=== PATIENT | female | born 1990 | race Caucasian/White ===

== ENCOUNTER 2020-06-25 21:21 | Emergency (ER) | payer OTHER ==
--- NOTE | 2020-06-25 21:35 | ER Document Report ---
ED Medical Screen (RME) - General Chief Complaint: Groin Pain Stated Complaint: POSSIBLE INFECTION GROIN AREA Time Seen by Provider: 06/25/20 21:29 Mode of Arrival: Ambulatory Information source: Patient Notes: Patient presents complaining of infection to the left groin area. Patient states that she has a large area of redness and tenderness. Patient states that it did start to spontaneously drain today. Patient denies any fever. Patient denies any chronic underlying medical problems. I have greeted and performed a rapid initial assessment of this patient. A comprehensive ED assessment and evaluation of the patient, analysis of test results and completion of the medical decision making process will be conducted by additional ED providers. Physical Exam - General General appearance: Appears well, Alert Notes: Left inguinal tenderness, exam limited as patient is in triage
[2020-06-26] MEDS ORDERED: SULFAMETHOXAZOLE/TRIMETHOPRIM 800-160 MG TABLET PO ONE (00:20)
[2020-06-26] MEDS ORDERED: CEPHALEXIN 500 MG CAPSULE PO ONE (00:20)
--- NOTE | 2020-06-26 00:29 | ER Document Report ---
ED General - General Chief Complaint: Abscess Stated Complaint: POSSIBLE INFECTION GROIN AREA Time Seen by Provider: 06/25/20 21:29 Mode of Arrival: Ambulatory Notes: 29-year-old female no significant past medical history presents with pain and swelling in left groin area over the last 3 days. Patient thinks symptoms were preceded by an ingrown hair. Had small lump but then dispersed just prior to arrival and some green fluid came out. Patient otherwise feels well. Patient denies any vaginal symptoms, diabetes, HIV, immunocompromise history, prior evaluation/recent antibiotics, fever, vomiting, symptoms elsewhere - Related Data Allergies/Adverse Reactions: No Known Allergies Allergy (Unverified 06/25/20 21:36) Past Medical History - General Information source: Patient - Social History Smoking Status: Former Smoker Frequency of alcohol use: None Drug Abuse: None Family History: Reviewed & Not Pertinent Review of Systems - Review of Systems Notes: REVIEW OF SYSTEMS: CONSTITUTIONAL : Denies fever, chills, or sweats. EENT: Denies recent cold/sinus symptoms, denies throat pain CARDIOVASCULAR: Denies chest pain, MEG RESPIRATORY: Denies cough, denies shortness of breath. GASTROINTESTINAL: Denies abdominal pain, nausea/vomiting. GENITOURINARY: Denies difficulty urinating, painful urination. FEMALE GENITOURINARY: Denies abnormal vaginal bleeding, vaginal discharge. MUSCULOSKELETAL: Denies neck pain, back pain. SKIN: + rash or skin lesions. HEMATOLOGIC : Denies easy bruising or bleeding. LYMPHATIC: + swollen, enlarged glands. NEUROLOGICAL: Denies headache, denies change in gait. PSYCHIATRIC: Denies anxiety or stress or depression. Physical Exam - Vital signs Vitals: Temp Pulse Resp BP Pulse Ox 98.5 F 103 H 18 133/81 H 100 06/25/20 21:31 06/25/20 21:31 06/25/20 21:31 06/25/20 21:31 06/25/20 21:31 - Notes Notes: PHYSICAL EXAMINATION: GENERAL: Well-appearing, well-nourished and in no acute distress. HEAD: Atraumatic, normocephalic. EYES: Pupils equal round and appropriate constriction, sclera anicteric, conjunctiva are normal. ENT: nares patent, moist mucous membranes. NECK: Normal range of motion, supple without lymphadenopathy LUNGS: Normal respiratory rate and effort, speaking in full sentences HEART: Regular rate, no JVD, no lower extremity edema ABDOMEN: Soft, nontender, no guarding, no masses, no CVAT PELVIC: Induration of soft tissue on left lower groin area sparing perineum with a central lesion without active discharge or fluctuance, left inguinal tender lymphadenopathy, no crepitus, no vaginal or vulvar involvement EXTREMITIES: Normal range of motion, no pitting or edema. No cyanosis. NEUROLOGICAL: Awake, alert, conversing appropriately, moves all extremities spontaneously. PSYCH: Normal mood, normal affect. SKIN: Warm, Dry, normal turgor, no rashes or lesions noted. Course - Re-evaluation Re-evalutation: 06/26/20 00:55 Very well-appearing patient with cellulitis of the skin overlying left pubic area with no abscess. Patient with no systemic symptoms, vital signs normal (had transient borderline tachycardia when initial vitals were taken in triage likely secondary to exertion prior to vitals being taken as it resolved without intervention at repeat vitals). No risk factors for complicated course, will give antibiotics for purulent cellulitis, gave extensive return to ED precautions which patient demonstrated understanding of, patient ready for discharge. - Vital Signs Vital signs: Temp Pulse Resp BP Pulse Ox 98.5 F 103 H 18 133/81 H 100 06/25/20 21:31 06/25/20 21:31 06/25/20 21:31 06/25/20 21:31 06/25/20 21:31 - Laboratory Results Critical Laboratory Results Reviewed: No Critical Results - Radiology Results Critical Radiology Results Reviewed: No Critical Results Discharge - Discharge Clinical Impression: Cellulitis Qualifiers: Site of cellulitis: trunk Site of cellulitis of trunk: groin Qualified Code(s): L03.314 - Cellulitis of groin Disposition: HOME, SELF-CARE Additional Instructions: Cephalexin The antibiotic you've been prescribed is a member of the cephalosporin class. This type of antibiotic covers a wide variety of infections, including those of the skin, lungs, and urinary tract. It's useful for staph infections. This antibiotic is slightly similar to the penicillin family. In rare cases, a person who is allergic to penicillin will also be allergic to this medication. If you have had a severe allergic reaction to penicillin, and have not taken this antibiotic since that time, notify your doctor. Antibiotics which cover many germs ("broad spectrum" antibiotics) are more likely to cause diarrhea or "yeast" infections. Women prone to vaginal yeast problems may suffer an attack after taking this antibiotic. In infants, oral thrush (white spots "stuck" on the cheek) or yeast diaper rash may result. See your doctor if these problems occur. Call at once if you develop itching, hives, shortness of breath, or lightheadedness. Sulfa Medications The antibiotic you have received is a member of the sulfa family. These antibiotics are commonly used for eye, ear, lung, or urinary infections. Sulfa antibiotics are best taken on an empty stomach. Extra glasses of water help the kidney process the antibiotic. Sulfas are not recommended for infants under two months, or for women near the end of . Occasional side effects can include nausea or diarrhea. Stop the medication and notify your doctor at once if you develop any skin rash, bruising, jaundice (yellow color of the skin), itching, swelling, joint pain, faintness, or shortness of breath, or if you note any other new or unusual symptoms. Take all antibiotics as prescribed. If you have any worsening symptoms, enlarging abscess, fever, vomiting, confusion, shortness of breath, dizziness, fainting, or any other worsening or alarming symptoms return to the emergency department immediately. Follow-up with your primary doctor within 3 to 5 days. Prescriptions: Sulfamethoxazole/Trimethoprim [Bactrim Ds Tablet] 2 tab PO BID 5 Days #10 tablet Cephalexin Monohydrate [Keflex 500 mg Capsule] 500 mg PO Q6H 5 Days #20 capsule Referrals: MAXIMILIANO ARAYA MD [[facility]] - Follow up in 3-5 days
[2020-06-26 00:34] VITALS: BP 135/96
== END 2020-06-26 00:33 | disposition home or self-care (01) ==
LOC: ER 21:21
DX: L03.314 Cellulitis of groin (principal); Z87.891 Personal history of nicotine dependence
CPT/HCPCS: 81025; 99283